=== PATIENT | female | born 1975 | race Caucasian/White ===

== ENCOUNTER → 2017-11-23 09:54 | Outpatient (CLI) | payer SELFPAY ==
[2017-11-27 09:53] LABS: HPV Reflexed? NOT INDICATED
== END ==
PROVIDERS: Visit Provider Family Medicine
DX: Z12.4 Encounter for screening for malignant neoplasm of cervix (principal)
CPT/HCPCS: 88175; G0145

== ENCOUNTER → 2018-01-08 08:10 | Outpatient (CLI) | payer OTHER, SELFPAY ==
--- NOTE | 2018-01-08 08:13 | BI_ITS ---
MAMMOGRAPHY - BILATERAL SCREENING REASON FOR EXAM: Female, 42 years old. Routine annual screening examination. PERTINENT HISTORY: Aunt with breast cancer. TECHNIQUE: Digital bilateral breast ilene (3D mammographic acquisition) in the CC and MLO projections. 2-D mediolateral oblique (MLO) and craniocaudad (CC) views of both breasts were obtained. CAD: Full Field Digital Mammography with Computer Added Detection was performed. COMPARISON: None. Baseline examination. FINDINGS: Breast Composition: There are scattered areas of fibroglandular density. There are no dominant masses or suspicious calcifications. No other significant abnormalities are identified. BI/SCREENING MAMM (CAD), BILAT IMPRESSION: Negative screening mammogram. Yearly followup mammogram recommended. (A) ASSESSMENT CATEGORY: BIRADS Category 1: Negative. A letter regarding these results will be sent to the patient by the facility within 30 days. Approximately 10% of breast cancers are not detected by mammography. A normal mammogram should not delay biopsy of a clinically suspicious abnormality. [id number] Electronically Signed: Ernesto Montanez MD at 10:04 EST Tel [phone], Service support ,
--- OUTSIDE RECORDS SUMMARY | 2018-03-05 01:43 | XMS RPT_ITS ---
:1975 Author Organization [facility] Care Team Providers Name Role Phone Leah Hdz Attending Unavailable Leah Hdz Attending Unavailable Leah Hdz Referring Unavailable Leah Hdz Primary Care Unavailable PROBLEMS PROBLEMS DATE TYPE CONDITION / CODE ATTENDING STATUS SOURCE 11/26/2017 Unknown Z12.4 - Leah Hdz Active [place] Encounter for Community screening for Hospital malignant Repository neoplasm of cervix / Z12.4(ICD-10) PROCEDURES PROCEDURES No Procedure Records FoundRESULTS RESULTS SCREENING MAMM (CAD), Observed: 01/08/2018 Status: F Source: [place] BILAT 8:13 AM [facility] REPOSITORY [facility] [address] [place] [address] SCREENING MAMM (CAD), BILAT MR#: [id number] Acct: [id number] Name: JAYDE BAUER Rep #: [id number] : 1975 F 42 From: Ernesto Montanez MD PCP: Leah Hdz DO Status: REG CLI Study: SCREENING MAMM (CAD), BILAT Date of Exam: 01/08/18 Exam# [id number] Ordering Dr: Leha Hdz DO MAMMOGRAPHY - BILATERAL SCREENING REASON FOR EXAM: Female, 42 years old. Routine annual screening examination. PERTINENT HISTORY: Aunt with breast cancer. TECHNIQUE: Digital bilateral breast ilene (3D mammographic acquisition) in the CC and MLO projections. 2-D mediolateral oblique (MLO) and craniocaudad (CC) views of both breasts were obtained. CAD: Full Field Digital Mammography with Computer Added Detection was performed. COMPARISON: None. Baseline examination. FINDINGS: Breast Composition: There are scattered areas of fibroglandular density. There are no dominant masses or suspicious calcifications. No other significant abnormalities are identified. BI/SCREENING MAMM (CAD), BILAT IMPRESSION: Negative screening mammogram. Yearly followup mammogram recommended. (A) ASSESSMENT CATEGORY: BIRADS Category 1: Negative. A letter regarding these results will be sent to the patient by the facility within 30 days. Approximately 10% of breast cancers are not detected by mammography. A normal mammogram should not delay biopsy of a clinically suspicious abnormality. [id number] Electronically Signed: Ernesto Montanez MD at 10:04 EST Tel [phone], Service support , CC: Leah Hdz DO Sales Training Coordinator: Signed PAP I-G W/ REFLEX Collected: 11/23/2017 Status: F Source: [place] TO HR HPV 9:30 AM [facility] REPOSITORY Order Comment: CYTOLOGY INFORMATION: - CLINICAL INFORMATION: - DATE LMP/MENOPAUSE: LMP - COLLECTION VIAL: Thin Prep Vial - MANAGER UTILIZATION REVIEW SOURCE: CERVICAL - COLLECTION TECHNIQUE: BRUSH/SPATULA Specimen Comment: [id number] Specimen Comment: Source.............Cervix Specimen Comment: No. of containers..01 ThinPrep Vial TYPE CODE TESTS RESULT OUT OF RANGE REFERENCE UNITS LAB L7400.0800 . Normal DIAGN Comment Result Comment: NEGATIVE FOR INTRAEPITHELIAL LESION AND MALIGNANCY. THIS SPECIMEN WAS RESCREENED PART OF OUR SPEECH LANG PATH THERAPIST PROGRAM. LAB L7400.0900 . Normal ADEQ Comment Result Comment: Satisfactory for evaluation. Endocervical and/or squamous metaplastic cells (endocervical component) are present. LAB L7400.1400 . Normal PERFORM Comment Result Comment: Dean Brock, Hvac Mechanic (ASCP) LAB L7400.1500 . Normal QC Comment REV Result Comment: Amanda Davis, Supervisory Hvac Mechanic (ASCP) LAB L7400.2575 . Normal TEST METHOD Comment Result Comment: This liquid based ThinPrep(R) pap test was screened with the use of an image guided system. LAB L7400.2600 . Normal . COMM LAB L7400.2700 . Normal PAPSMR Comment Result Comment: The Pap smear is a screening test designed to aid in the detection of premalignant and malignant conditions of the uterine cervix. It is not a diagnostic procedure and should not be used as the sole means of detecting cervical cancer. Both false-positive and false-negative reports do occur. LAB L7400.2800 . Normal HPV RFLX Comment Result Comment: The HPV DNA reflex criteria were not met with this specimen result therefore, no HPV testing was performed. Performed at: [address] [id number] [facility] Assessment: Tatyana Hurst MD, Phone: [phone] Performed By: #### L7400.0355 #### [facility] (refer to report for specific site) refer to report for address and phone number ALLERGIES ALLERGIES No Allergies Records FoundENCOUNTERS ENCOUNTERS ADMIT/DISCHARGE ACCOUNT ADMITTING ENCOUNTER LOCATION SOURCE NUMBER CLASS 01/08/2018 [id number] Ambulatory [facility] 1 [facility] ing:OPBI Repository 11/23/2017 [id number] Ambulatory [facility] 6 [facility] ing:LABSPEC Repository PAYERS PAYERS ENCOUNTER GUARANTOR PAYER SUBSCRIBER SOURCE 01/08/2018 NONA [place] Primary JAYDE LARRY [place] [id number] OLD Insurance:Zvooq KAISERB: [facility] Number: [id number] [id number] Repository [address]Bnj: ([phone]) Date:[id number] [phone] () [address] [place] [phone]: 01/08/2018 Secondary NOT GIVENUNK [place] Insurance:SELF PAY [facility] Number: Effective Repository Date:2017-11-27 11/23/2017 NONA A Primary NOT GIVENUNK [place] [id number] OLD Insurance:SELF PAY [place] Number: Effective Repository [id number]: ([phone]) Date:2017-11-23 [phone] ()
== END ==
PROVIDERS: Family Provider Family Medicine; PCP Family Medicine; Referring Provider Family Medicine; Visit Provider Family Medicine
DX: Z12.31 Encounter for screening mammogram for malignant neoplasm of breast (principal)
CPT/HCPCS: 77063; 77067

== ENCOUNTER → 2020-08-01 15:22 | Outpatient (CLI) | payer OTHER, SELFPAY ==
--- NOTE | 2020-08-01 15:25 | US_ITS ---
STUDY: ULTRASOUND OF THE FEMALE PELVIS - COMPLETE REASON FOR EXAM: Female, 44 years old. MENORRHAGIA LMP: 06/26/2020 TECHNIQUE: Transabdominal and Transvaginal TECHNICAL QUALITY: Adequate. COMPARISON: None. FINDINGS: The uterus is anteverted and is in a midline position. The uterus measures 15.1 x 7.1 x 4.5 cm. There is a Nabothian cyst of the cervix. The endometrium measures 11 mm in thickness, and is hyperechoic. There is no demonstrated endometrial mass. 2.2 cm isoechoic mass of the anterior to the endometrial stripe within the body the uterus consistent with a submucosal fibroid. I.U.D. - The patient does not have an I.U.D. The right ovary is visualized. The right ovary measures 2.5 x 1.8 x 1.4 cm. There is no right ovarian cyst or ovarian mass. There is no visualized right adnexal mass or complex lesion. There is normal arterial and normal venous vascularity. The left ovary is visualized. The left ovary measures 4.2 x 3.7 x 3.3 cm. There is no left ovarian cyst or ovarian mass. There is no visualized left adnexal mass or complex lesion. There is normal arterial and normal venous vascularity. There is no fluid in the cul-de-sac. The pre void volume of the bladder was ml. The post void volume of the bladder was ml. Polycystic ovary disease: No. US/Pelvic (Non ) IMPRESSION: 2.2 cm submucosal fibroid of the body the uterus. Electronically Signed: Umang Sanchez MD at 16:45 EDT Tel , Service support ,
--- NOTE | 2020-08-01 15:25 | US_ITS ---
STUDY: ULTRASOUND OF THE FEMALE PELVIS - COMPLETE REASON FOR EXAM: Female, 44 years old. MENORRHAGIA LMP: 06/26/2020 TECHNIQUE: Transabdominal and Transvaginal TECHNICAL QUALITY: Adequate. COMPARISON: None. FINDINGS: The uterus is anteverted and is in a midline position. The uterus measures 15.1 x 7.1 x 4.5 cm. There is a Nabothian cyst of the cervix. The endometrium measures 11 mm in thickness, and is hyperechoic. There is no demonstrated endometrial mass. 2.2 cm isoechoic mass of the anterior to the endometrial stripe within the body the uterus consistent with a submucosal fibroid. I.U.D. - The patient does not have an I.U.D. The right ovary is visualized. The right ovary measures 2.5 x 1.8 x 1.4 cm. There is no right ovarian cyst or ovarian mass. There is no visualized right adnexal mass or complex lesion. There is normal arterial and normal venous vascularity. The left ovary is visualized. The left ovary measures 4.2 x 3.7 x 3.3 cm. There is no left ovarian cyst or ovarian mass. There is no visualized left adnexal mass or complex lesion. There is normal arterial and normal venous vascularity. There is no fluid in the cul-de-sac. The pre void volume of the bladder was ml. The post void volume of the bladder was ml. Polycystic ovary disease: No. US/Transvaginal Non- IMPRESSION: 2.2 cm submucosal fibroid of the body the uterus. Electronically Signed: Umang Sanchez MD at 16:45 EDT Tel , Service support ,
== END ==
PROVIDERS: PCP Family Medicine; Referring Provider Family Medicine; Visit Provider Family Medicine
DX: N92.4 Excessive bleeding in the premenopausal period (principal); N93.8 Other specified abnormal uterine and vaginal bleeding
CPT/HCPCS: 76830; 76856

== ENCOUNTER → 2020-08-27 11:03 | Outpatient (CLI) | payer OTHER, SELFPAY ==
[2020-08-27 09:35] VITALS: BMI 39.2
--- NOTE | 2020-08-27 09:40 | EMB_PTH ---
PATIENT: JAYDE BAUER [id number] AGE/SX: 49/F ROOM: RE08/27/[address]: LORI Smart : 1975 BED: DIS: SPEC #: [id number] RECD: 08/27/20 11:16 STATUS: ELADIA JOSE LUIS #: [id number] DEANGELO: 08/27/20 09:[address]: Priscilla Haynes NP DEPT: SURGICAL PATHOLOGY RECD BY: Rosina Coppola ENTERED: 08/27/20 13:32 SP TYPE: ENDOM BX/C EDDIE DR: Dr. Leah Hdz DO Tissues: Endometrium, NOS Procedures: Surgery Specimen Level IV HEADER OPERATION: Endometrial biopsy PRE-OP DIAGNOSIS: Abnormal bleeding TISSUE SUBMITTED: Endometrial lining MICROSCOPIC DIAGNOSIS Endometrium, biopsy: Proliferative endometrium with minimal disorder and focal glandular breakdown. AM:indra 08/28/2020 MICROSCOPIC DESCRIPTION Slides are reviewed. GROSS DESCRIPTION Received is one container labeled with the patient's name and not further designated. The specimen consists of multiple fragments of jenkins hemorrhagic soft tissue that in aggregate measure 3 x 2.5 x 0.2 cm. The specimen is totally submitted in one cassette. / SJ:indra 08/27/20 TC:5 CPT: 34012
[2020-08-29 16:44] LABS: HPV APTIMA, High Risk Negative (Negative)
== END ==
PROVIDERS: PCP Family Medicine; Visit Provider Nurse Practitioner Women's Health
DX: Z12.4 Encounter for screening for malignant neoplasm of cervix (principal); N93.9 Abnormal uterine and vaginal bleeding, unspecified
CPT/HCPCS: 87624; 88175; 88305; G0145

== ENCOUNTER → 2020-08-30 16:12 | Outpatient (CLI) | payer OTHER, SELFPAY ==
[2020-08-27 09:35] VITALS: BMI 39.2
--- NOTE | 2020-08-30 16:14 | BI_ITS ---
MAMMOGRAPHY - BILATERAL SCREENING REASON FOR EXAM: Female, 45 years old. Routine annual screening examination. PERTINENT HISTORY: Aunt with breast cancer. TECHNIQUE: Digital bilateral breast vadim (3D mammographic acquisition) in the CC and MLO projections. 2-D mediolateral oblique (MLO) and craniocaudad (CC) views of both breasts were obtained. CAD: Full Field Digital Mammography with Computer Added Detection was performed. COMPARISON: Comparison is made with prior study dated 01/08/2018. FINDINGS: Breast Composition: The breasts are almost entirely fatty. There are no dominant masses or suspicious calcifications. Stable small benign-appearing bilateral axillary lymph nodes. No other significant abnormalities are identified. There has been no significant change since the prior study. BI/SCRN MAMM (CAD)W/VADIM BILAT IMPRESSION: Stable bilateral screening mammogram. Yearly follow-up mammogram recommended. (A) ASSESSMENT CATEGORY: BIRADS Category 2: Benign. A letter regarding these results will be sent to the patient by the facility within 30 days. Approximately 10% of breast cancers are not detected by mammography. A normal mammogram should not delay biopsy of a clinically suspicious abnormality. [id number] Electronically Signed: Ernesto Montanez MD at 8:49 EDT , Service support ,
== END ==
PROVIDERS: PCP Family Medicine; Referring Provider Nurse Practitioner Women's Health; Visit Provider Nurse Practitioner Women's Health
DX: Z12.31 Encounter for screening mammogram for malignant neoplasm of breast (principal); Z80.3 Family history of malignant neoplasm of breast
CPT/HCPCS: 77063; 77067

== ENCOUNTER 2021-05-21 09:10 | Day surgery (SDC) | payer OTHER, SELFPAY ==
[2021-05-17 10:54] LABS: Hematocrit 31.2 % (37-47); Hemoglobin 9.4 g/dL (12.0-15.0); Mean Corp Hgb Conc 30.1 g/dL (32-36); Mean Corpuscular Hgb 20.8 pg (27.0-32.0); Mean Corpuscular Volume 68.9 fL (81-99); Mean Platelet Vol. 10.2 fl (6.2-12.0); Platelet Count 398 K/mm3 (150-450); RBC Distribution Width SD 41.5 fl (35.1-43.9); Red Blood Count 4.53 M/mm3 (4.2-5.4); White Blood Count 6.4 K/mm3 (4.4-11.0)
[2021-05-17 11:20] LABS: Magnesium 2.2 mg/dL (1.6-2.6)
--- NOTE | 2021-05-20 16:30 | PCM.HP.BLA ---
History and Physical Date of Admission: 05/20/21 MR#:[id number]:[id number]: JAYDE BAUER #:[id number]:1975 Provider:Dr. Eden Mota, DOAge/Sex: 45/F [facility] Vital Signs 04/25/21 11:45 Height 5 ft 5 in Weight: 230 lb 8 oz BMI 38.3 BP 120/78 Intake Visit Reasons: consult robotic hyst. per Utility Operator Yarn Required: No Is patient in pain?: No Allergies No Known Allergies Allergy (Verified 04/25/21 11:45) Medications sertraline 100 mg tablet 100 mg PO DAILY 08/27/20 [History Confirmed 04/25/21] levonorgestrel 0.15 mg-ethinyl estradiol 0.03 mg tablet 1 tab PO DAILY #84 tab 01/07/21 [Rx Confirmed 04/25/21] Post menopausal: No Patient : No : [facility] History History of History of tonsillectomy Family History Aunt Breast cancer Father Myocardial infarction Social History Smoking Status: Never smoker alcohol intake: current alcohol intake frequency: holidays/special occasions only substance use type: does not use caffeine: Yes what type of physical activity do you participate in: none seatbelt use: always do you feel safe at home: Yes additional social history: [employer]ARN[employer] is [employer]ony HPI consult robotic hyst. per Details: JAYDE BAUER is a 45 year old who presents for heavy irregular bleeding, failed medical management with aygestin and zain, somewhat stable for now on levora. She has pelvic pressure and discomfort, abdominal bloating. she had an us done that showed an enlarged uterus with several fibroids. emb done in August was negative. The uterus measures 15 cm on ultrasound. She was referred by Dr. Caldera for a robotic hysterectomy. Pregancy History 2 Elective abortions Hx Para 2 Spontaneous abortions Hx # Term Pregnancies Ectopic pregnancies Hx # Pregnancies Multiple births # of living children Past Pregnancies Del. Date Name GA/Weeks Outcome Route Bth Weight Infant Gen Labor Lgth Anesthesia Del Locatn Provider FOB Unknown marilyn 1998 live - full term Unknown dulce 2002 live - full term ROS Const ROS Unobtainable: All systems reviewed & are unremarkable except as noted in H Resp Resp: Reports system reviewed and no additional complaints, except as documented; Denies cough GI GI: Reports as per HPI Psych Psych: Reports system reviewed and no additional complaints, except as documented Exam Const General: cooperative, healthy appearing, comfortable and no acute distress Resp Effort & Inspection: normal respiratory effort Skin General: no rashes or lesions noted Psych Appearance: grossly normal Speech and Movement: speech and movement normal Coding Level of Care Code Off vis,est,level 4 Diagnoses Enlarged uterus N85.2 Uterine fibroid D25.0 Uterine leiomyoma location: submucous Menorrhagia N92.1 Menorrhagia type: with irregular cycle Assessment and Plan Assessment and Plan (1) Enlarged uterus: Status: Acute Comment: 15cm (2) Uterine fibroid: Status: Acute Qualifiers: Uterine leiomyoma location: submucous Qualified Code(s): D25.0 - Submucous leiomyoma of uterus Comment: Disordered endometrium on EMB, 2cm submucosal fibroid. Failed aygestin, maya. On levora. (3) Menorrhagia: Status: Acute Qualifiers: Menorrhagia type: with irregular cycle Qualified Code(s): N92.1 - Excessive and frequent menstruation with irregular cycle Comment: Consult 02/11/21 desires LAVH; also discussed removal of fibroid and either ablation vs IUD. Plan - Dr. Eden Mota, DO: plan is for a total robotic hysterectomy, bilateral salpingectomy, and cystoscopy in May. After discussing the patient's diagnosis and treatment plan options, patient wishes to proceed with surgical management. I have discussed with the patient the risks, benefits, and alternatives of the procedure which include but are not limited to risks of anesthesia, bleeding, infection, possible damage to bowel, bladder, or surrounding vasculature which could lead to additional surgery to evaluate any complications. Patient agrees to procedure and wishes to proceed. ACOG/uptodate references given for additional information regarding procedure. UPDATE- I have seen the patient and performed any clinically relevant updates to the history and physical exam. Eden Mota, DO
[2021-05-21] VITALS (8 sets, daily range): BP systolic 88–125; BP diastolic 22–87; PULSE 74–94; RESP 16; TEMP 36.1–37.2; O2SAT 94–100; BMI 38.1
--- NOTE | 2021-05-21 | HYST_PTH ---
PATIENT: JAYDE BAUER LOC: [facility] U#:[id number] AGE/SX: 45/F ROOM: RE05/21/[address]: Dr. Eden Mota DO : 1975 BED: DIS: 05/21/2021 SPEC #: [id number] RECD: 05/21/21 12:56 STATUS: ELADIA JOSE LUIS #: [id number] DEANGELO: 05/21/21 00:[address]: Eden Mota DEPT: SURGICAL PATHOLOGY RECD BY: Omar Arias ENTERED: 05/21/21 12:57 SP TYPE: HYSTERECT OTHR DR: Dr. Leah Hdz DO Tissues: Uterus, NOS Procedures: Surgery Specimen Level V HEADER OPERATION: ERAS, total robotic hysterectomy, bilateral salpingectomy PRE-OP DIAGNOSIS: 15 cm fibroid uterus with menorrhagia TISSUE SUBMITTED: Uterus, cervix, bilateral fallopian tubes MICROSCOPIC DIAGNOSIS Uterus, hysterectomy: Cervix ? nabothian cysts and chronic inflammation. Endometrium ? weakly proliferative endometrium. Myometrium ? leiomyomas. Right fallopian tube ? benign paratubal cysts. Left fallopian tube ? benign paratubal cysts and focal endometriosis. AM:indra 05/22/2021 MICROSCOPIC DESCRIPTION Slides are reviewed. GROSS DESCRIPTION Received in fixative is one container labeled with the patient's name and designated uterus. The specimen consists of a uterus with attached cervix and attached right and left fallopian tubes. The uterus with cervix measures 12.2 x 6 x 4.6 cm and weighs 125.6 gm. The ectocervix is grossly unremarkable. The cervical os is oval in contour. The endocervical canal measures 5.5 cm in length and is grossly unremarkable. The elongated endometrial cavity measures 5 x 2.2 cm. The light jenkins endometrium measures up to 0.2 cm in thickness. The myometrium is distorted by two rubbery spherical nodules ranging in size from 1 to 2.6 cm and grossly resembling leiomyomas. No areas of cyst formation, necrosis or hemorrhage are identified. The myometrium without masses averages 2.5 cm in thickness. The right and left fallopian tubes are similar in appearance with average lengths of 7 cm each and average diameter of 0.4 cm each. Normal fimbriated ends are identified in both fallopian tubes. Assembly Line Machine Operator sections are submitted in ten cassettes as follows: 1 - anterior cervix, 2 - posterior cervix, 3 & 4 - anterior myometrial wall, 5 & 6 - posterior myometrial wall, 7 - larger myometrial mass, 8 - smaller myometrial mass, 9 - right fallopian tube, 10 - left fallopian tube. / AM:indra 05/21/2021 TC:1 CPT: 79089
[2021-05-21 09:45] LABS: Internal QC Validated? YES +Cl - CLEAR BKGD; Pregnancy, Urine Negative Negative
[2021-05-21] MEDS: Lactated Ringers 1,000 ML 40 ML IV ×3 (09:46→12:45)
[2021-05-21] MEDS: Gabapentin 600 MG Tablet PO (09:47)
[2021-05-21] MEDS: Acetaminophen 500 MG Tablet 1000 MG PO (09:47)
--- NOTE | 2021-05-21 09:49 | PCM.DC ---
Discharge Instructions Diet Discharge Diet: No restrictions Activity May resume sexual activity in: 6 weeks Weight Bearing Status: Full weight bearing Dressing / Incision Call your doctor if your incision/area has: Continuous Slow Oozing, Sudden Increased Bleeding, Increased Pain/ Swelling, Increased Redness and Foul Smelling Discharge Call your doctor if you observe: Fever of 101 or Higher, Using more than 1 pad per hour, Shortness of breath, Chest pain and Uncontrolled pain Suture Line Care: Avoid Pulling/Pushing and Avoid Pinching/Bending Remove Dressing in: 1 week (if present) Cleanse incision/area with: Soap & Water and Keep Dressing Clean & Dry Follow Up Care Please Follow Up With: Eden Mota DO When: Call to make an appointment with your doctor for a postop visit in 2 and 6 weeks Test Results: Test results from this visit will be discussed in further detail at your follow-up appointment, if applicable. Discharge Plan Admission Primary Reason for Your Visit: hysterectomy Attending Provider: Eden Mota Primary Care Provider: Leah Hdz Discharge Orders/Prescriptions Prescriptions: New docusate sodium [Colace] 100 mg capsule 100 mg PO DAILY 14 Days Qty: 14 RF: 0 ibuprofen 800 mg tablet 800 mg PO Q8H PRN (Reason: pain) 7 Days Qty: 30 RF: 0 oxycodone-acetaminophen [Percocet] 5-325 mg tablet 1 tab PO Q6H PRN (Reason: pain) 7 Days Qty: 30 RF: 0 ondansetron 4 mg tablet,disintegrating 4 mg PO Q8H PRN (Reason: nausea and vomiting) Qty: 20 RF: 0 Continued sertraline [Zoloft] 100 mg tablet 100 mg PO DAILY RF: 0 cetirizine 5 mg Tablet 5 mg PO DAILY RF: 0 Discontinued levonorgestrel-ethinyl estrad 0.15-0.03 mg tablet 1 tab PO DAILY Qty: 84 RF: 3 Referrals / Follow Up: Leah Hdz DO [Primary Care Provider] - Disposition Disposition (needs filled in before D/C Order can be placed): Home, Self Care
--- NOTE | 2021-05-21 09:53 | PCM.OPRPT ---
Report of Operation Date of Procedure: 05/21/21 Pre-Operative Diagnosis: 15 cm fibroid uterus with menorrhagia Post-Operative Diagnosis: 15 cm fibroid uterus with menorrhagia Surgery/Procedure Performed:: Total robotic hysterectomy, bilateral salpingectomy, cystoscopy Description of Surgical Findings:: marked scar tissue of the bladder to the uterus Surgeon: Eden Mota operations supervisor: Betsey Mena Type of Anesthesia: General Anesthesiologist: Les Pena Specimen's removed: uterus, cervix, fallopian tubes Drains: none Estimated Blood Loss (mL): 30cc Fluids Replaced: 1800cc Description of Procedure: Urine output:100cc Drains: None Implanted material: None Complications: None Findings : 15 cm uterus, normal appearing ovaries and tubes. On exploration of the abdominal cavity the uterus, adnexa, bowel, and liver were found to be normal. Cystoscopy showed no evidence of leaking at approximately 250 cc of normal saline, positive ureteral orifices and jet flow are seen and no suture material was appreciated in the bladder. Specimens removed: Uterus and cervix, Bilateral tubes Reason for surgery: This is a 45-year-old G2, P2 who presented to my office with history of heavy menses and large fibroid uterus measuring 15 cm in size. She has a history of section x2 the planned procedure is for a robotic hysterectomy the risks benefits and alternatives were discussed with the patient the patient had a clear understanding of the procedure and a consent form was signed. Procedure: The patient was placed in the dorsal low lithotomy position and prepped and draped in the normal sterile fashion both abdominally and in the perineum. Her legs were placed in stirrups a Sheikh catheter was inserted into the urethra without difficulty. A weighted speculum was placed in the vagina and a single-tooth tenaculum was used to grasp the anterior lip of the cervix. A uterine manipulator was inserted through the cervix without complication. It was then tied into place at the 2 and 10:00 locations on the cervix. Gloves were changed and attention was turned towards the abdomen. Approximately 23 cm above the pubic symphysis in the midline, and after Marcaine injection, a [8] mm incision was made. An 8 mm trocar was inserted through the laparoscope, then inserted into the abdomen under direct visualization using the laparoscope. Good abdominal placement was noted and no complications were appreciated. An air seal device was utilized to create pneumoperitoneum. At 12 cm lateral to the midline on the left and right sides 8 mm accessory ports were placed. Next a left upper quadrant 8 mm [employer] assistant [employer] port site was placed. The patient was placed in steep Trendelenburg position. The robot was docked. The hysterectomy was initiated first by taking down the round ligament on each side using the vessel sealer device. The broad ligament was then and taken down using the vessel sealer device. There was noted to be a marked amount of scar tissue of the bladder to the anterior aspect of the uterus. This was dissected off using the vessel sealer device, monopolar cautery and manual fine dissection. Further dissection was performed using monopolar cautery to the level of the cervical vaginal junction. After the bladder flap was created, uterine vessels were then isolated and cauterized using the vessel sealer device and EndoShears. At this point the uterine vessels were taken down further starting from the ascending branch, dissecting along the edges of the cervix to the level of the cervical vaginal junction with hemostasis appreciated. The cervical vaginal junction was then using monopolar cautery in a circumferential pattern across the superior aspect of the cervix. The specimen was delivered through the vagina and sent to pathology. The remaining vaginal cuff was then closed using OV lock suture. This was performed in a running technique. Excellent hemostasis was obtained and good closure was noted. Irrigation was then performed. All operative sites were noted to be hemostatic. A cystoscopy was performed with a 70 degree cystoscope through the urethra into the bladder without complication. The bladder was instilled with approximately 250 cc of normal saline. Intraoperative images were made. Ureteral orifices and jets were identified. No suture material was appreciated in the bladder. The bladder was then drained and cystoscope was removed. The abdominal cavity was again examined using the laparoscope after the robot was undocked. All operative sites were noted to be hemostatic. The trochars were removed under direct visualization without complication and pneumoperitoneum was reduced. At this point the skin was then closed using 4-0 Monocryl subcuticular stitch and sealed with surgical glue. The patient tolerated the procedure well sponge lap and needle counts were correct x2 the patient was taken to the recovery room in stable condition. Complications none Admit VTE Documentation VTE Present on Admission: Yes VTE Mechan Device Prophylaxis: SCD's VTE Pharm Prophylaxis ordered?: No Reason prophylaxis not ordered:: Treatment Not Indicated Multi Select Codes Urinary/Genital Urinary/Genital CPT Codes: 52346 TLH+BS/O >250gr uterus
--- NOTE | 2021-05-21 10:05 | SUR.PREOP ---
vagal episode in AC during IV insertion. Patient placed in Trendelenburg and O2 applied. Patient returned to baseline and reports history of vagal episodes.
[2021-05-21] MEDS: Cefazolin 2 GM in 0.9% Normal Saline 100 ML IV (10:29)
[2021-05-21 11:30] LABS: Bedside Glucose 93 mg/dL (74-106)
[2021-05-21] MEDS: Ondansetron 4 MG/2 ML Vial IV (12:00)
[2021-05-21] MEDS: Bupivacaine 0.25% 30 ML Vial (12:00)
== END 2021-05-21 23:59 | disposition home or self-care (01) ==
LOC: SDC 09:11 → AC 09:11
PROVIDERS: Anesthesiology; PCP Family Medicine; Referring Provider Obstetrics & Gynecology; Visit Provider Obstetrics & Gynecology
PROC: 0UT90ZZ Resection of Uterus, Open Approach (ICD-10-PCS; CPT 58570; principal; 2021-05-21 10:50)
DX: D25.9 Leiomyoma of uterus, unspecified (principal); N88.8 Other specified noninflammatory disorders of cervix uteri; N83.8 Other noninflammatory disorders of ovary, fallopian tube and broad ligament; N80.2 Endometriosis of fallopian tube; F41.9 Anxiety disorder, unspecified; F32.A Depression, unspecified; E78.00 Pure hypercholesterolemia, unspecified; Z79.899 Other long term (current) drug therapy; Z80.3 Family history of malignant neoplasm of breast
CPT/HCPCS: 58570; 00840; 36415; 81025; 82962; 83735; 85027; 86850; 86900; 86901; 87426; 88307; C9803; J7120; J2405; J3475

== ENCOUNTER → 2023-09-22 | Outpatient (CLI) | payer OTHER, SELFPAY ==
--- NOTE | 2023-09-22 13:13 | BI_ITS ---
MAMMOGRAPHY - BILATERAL SCREENING REASON FOR EXAM: Female, 48 years old. Routine annual screening examination. PERTINENT HISTORY: Aunt with breast cancer. TECHNIQUE: Digital bilateral breast vadim (3D mammographic acquisition) in the CC and MLO projections. 2-D mediolateral oblique (MLO) and craniocaudad (CC) views of both breasts were obtained. CAD: Full Field Digital Mammography with Computer Added Detection was performed. COMPARISON: Comparison is made with prior study dated August 30, 2020 and January 08, 2018. FINDINGS: Breast Composition: The breasts are almost entirely fatty. There are no dominant masses or suspicious calcifications. No other significant abnormalities are identified. There has been no significant change since the prior study. BI/SCRN MAMM (CAD)W/VADIM BILAT IMPRESSION: Stable bilateral screening mammogram. Yearly follow-up mammogram recommended. (A) ASSESSMENT CATEGORY: BIRADS Category 1: Negative. A letter regarding these results will be sent to the patient by the facility within 30 days. Approximately 10% of breast cancers are not detected by mammography. A normal mammogram should not delay biopsy of a clinically suspicious abnormality. [id number] Electronically Signed: Ernesto Montanez MD at 14:33 EDT ,
== END | disposition home or self-care (01) ==
LOC: OPBI 13:11
PROVIDERS: PCP Family Medicine; Referring Provider Family Medicine; Visit Provider Family Medicine
DX: Z12.31 Encounter for screening mammogram for malignant neoplasm of breast (principal); Z80.3 Family history of malignant neoplasm of breast
CPT/HCPCS: 77063; 77067

== ENCOUNTER → 2024-03-11 | Outpatient (CLI) | payer OTHER, SELFPAY ==
[2024-03-11 10:52] LABS: AST(SGOT) 15 U/L (15-37); Alanine Aminotransfer ALT/SGPT 22 U/L (13-56); Albumin, Serum 3.5 g/dL (3.2-5.0); Alkaline Phosphatase 89 U/L (45-117); Anion Gap 6 (5-15); BUN 9 mg/dL (7-18); BUN/Creat Ratio 10.8 RATIO (10-20); Calcium,Total 8.8 mg/dL (8.5-10.1); Chloride 108 mmol/L (98-107); Cholesterol 200 mg/dL (200); Creatinine, Serum 0.84 mg/dL (0.55-1.02); EST Glomerular Filtration Rate 77 mL/min (>60); Est Glom Filt Rate - Afr Amer 93 mL/min (>60); Globulin 3.4 g/dL (2.2-4.2); Glucose 82 mg/dL (74-106); High Density Lipoprotein 57 mg/dL; Potassium 4.2 mmol/L (3.5-5.1); Protein, Total 6.9 g/dL (6.4-8.2); Sodium Level 140 mmol/L (136-145); Triglycerides 82 mg/dL; Very Low Density Lipoprotein 16 mg/dL (5-40)
== END | disposition home or self-care (01) ==
LOC: LAB 09:00
PROVIDERS: PCP Family Medicine; Referring Provider Family Medicine; Visit Provider Family Medicine
DX: E78.5 Hyperlipidemia, unspecified (principal); Z51.81 Encounter for therapeutic drug level monitoring
CPT/HCPCS: 36415; 80053; 80061

== ENCOUNTER → 2024-09-29 | Outpatient (CLI) | payer OTHER, SELFPAY ==
--- NOTE | 2024-09-29 15:59 | BI_ITS ---
EXAM: SCRN MAMM (CAD)W/VADIM BILAT DATE: 09/29/2024 CLINICAL HISTORY: F, Age 49 y/o , SCREENING Aunt with breast cancer. TECHNIQUE: SCRN MAMM (CAD)W/VADIM BILAT COMPARISON: Prior exam(s) dated prior study dated September 22, 2023.. FINDINGS: TISSUE DENSITY: The breasts are almost entirely fatty. Bilateral Breast Mammographic Findings: No significant masses, calcifications or other abnormalities are identified. Stable small benign-appearing bilateral axillary lymph nodes. No suspicious masses, areas of developing architectural distortion, or suspicious calcifications. There has been no significant interval change. BI/SCRN MAMM (CAD)W/VADIM BILAT IMPRESSION: Stable examination. OVERALL FINAL ASSESSMENT BI-RADS 2: BENIGN RECOMMENDATION: Routine annual follow-up in 1 Year A letter with findings and recommendations will be mailed to the patient. Reading Location: [id number]
== END | disposition home or self-care (01) ==
LOC: OPBI 15:57
PROVIDERS: PCP Family Medicine; Referring Provider Family Medicine; Visit Provider Family Medicine
DX: Z12.31 Encounter for screening mammogram for malignant neoplasm of breast (principal)
CPT/HCPCS: 77063; 77067